=== PATIENT | male | born 1960 | race African-American/Black ===

== ENCOUNTER 2019-07-28 08:31 | Inpatient (IN) | payer OTHER ==
[~2019-07-28] VITALS: Ht 188 cm; Wt 113.4 kg
[2019-07-28] MEDS ORDERED: FUROSEMIDE 20MG/2ML VIAL IVP ONE (09:45)
[2019-07-28] MEDS ORDERED: HYDROCODONE/ACETAMINOPHEN 5/325MG TABLET PO ONE (09:45)
[2019-07-28 10:25] LABS: BASOPHILS % 0.4 % (0.0-2.0); EOSINOPHILS % 0.9 % (0.0-5.0); HEMATOCRIT. 41.8 % (42.0-52.0); HEMOGLOBIN. 13.4 g/dL (14.0-18.0); LYMPHOCYTES % 23.7 % (20.0-50.0); MEAN CORPUSCULAR HEMOGLOBIN 26.5 pg (28.0-32.0); MEAN CORPUSCULAR VOLUME 82.7 fL (80.0-94.0); MEAN PLATELET VOLUME 7.6 fl (7.4-10.4); MONOCYTES % 9.9 % (2.0-8.0); NEUTROPHILS % 65.1 % (40.0-76.0); PLATELET 161 x1000/uL (130-400); RED BLOOD CELL COUNT 5.06 mill/uL (4.7-6.1); RED CELL DISTRIBUTION WIDTH 19.9 % (11.6-14.6)
[2019-07-28 10:33] LABS: CHLORIDE 102 mEq/L (98-107)
[2019-07-28 10:37] LABS: ETHANOL BLOOD 102 mg/dL
[2019-07-28] MEDS ORDERED: POTASSIUM CHLORIDE 20MEQ TABLET SR PO ONE (11:30)
[2019-07-28] MEDS ORDERED: FUROSEMIDE 20MG/2ML VIAL IVP NR (11:45)
[2019-07-28] MEDS ORDERED: SODIUM CHLORIDE 0.9% 1,000 ML IV ONE (12:00)
[2019-07-28] MEDS ORDERED: DEXAMETHASONE 10 MG/ML VIAL IV ONE (13:15)
[2019-07-28 16:25] LABS: *BARBITURATES SCREEN URINE NEGATIVE (NEGATIVE); CANNABINOID URINE SCREEN NEGATIVE (NEGATIVE)
[2019-07-28 16:26] LABS: *AMPHETAMINES SCREEN URINE NEGATIVE (NEGATIVE); *BENZODIAZEPINES SCREEN URINE NEGATIVE (NEGATIVE)
[2019-07-28 16:27] LABS: OPIATES URINE SCREEN NEGATIVE (NEGATIVE)
[2019-07-28 16:28] LABS: *COCAINE SCREEN URINE NEGATIVE (NEGATIVE)
[2019-07-28 16:29] LABS: METHADONE URINE SCREEN NEGATIVE (NEGATIVE); PHENCYCLIDINE URINE SCREEN NEGATIVE (NEGATIVE)
[2019-07-28] MEDS ORDERED: ONDANSETRON HCL 4MG/2ML INJ IV ONE (18:15)
[2019-07-28] MEDS ORDERED: MORPHINE SULFATE 2 MG/ML CPJ (NOT FOR IM USE) IV ONE (18:15)
[2019-07-28 20:52] LABS: CLARITY URINE CLOUDY (CLEAR); COLOR URINE YELLOW (YELLOW); KETONES URINE NEGATIVE (NEGATIVE); LEUKOCYTE ESTERASE URINE 1+ (NEGATIVE); NITRITE URINE POSITIVE (NEGATIVE); OCCULT BLOOD URINE TRACE (NEGATIVE); PROTEIN URINE TRACE (NEGATIVE); SPECIFIC GRAVITY URINE 1.012 (1.005-1.030)
[2019-07-28] MEDS ORDERED: CEFTRIAXONE 1 G PREMIX 50 ML IV ONE (23:45)
[2019-07-29] MEDS ORDERED: ACETAMINOPHEN 325MG TABLET PO PRN (01:15)
[2019-07-29] MEDS ORDERED: CLONIDINE 0.1MG TABLET PO PRN (01:15)
[2019-07-29] MEDS ORDERED: ONDANSETRON HCL 4MG/2ML INJ IV PRN (01:15)
[2019-07-29] MEDS: MORPHINE SULFATE 2 MG/ML CPJ (NOT FOR IM USE) IV PRN ×2 (03:48→10:34)
[2019-07-29] MEDS ORDERED: LEVOFLOXACIN 500MG PREMIX 100 ML IV SCH (06:00)
[2019-07-29] MEDS: ENOXAPARIN 40MG/0.4ML SYR SUBCUT SCH (09:07)
[2019-07-29 10:10] VITALS: BP 119/102
[2019-07-29 10:25] VITALS: BP 119/102
[2019-07-29] MEDS: AMLODIPINE 10MG TABLET PO SCH (10:33)
[2019-07-29] MEDS ORDERED: IBUPROFEN 800MG TABLET PO PRN (11:15)
[2019-07-29] MEDS: FUROSEMIDE 40MG/4ML VIAL IVP SCH (11:45)
[2019-07-29 12:00] VITALS: BP 119/82
[2019-07-29] MEDS: HYDRALAZINE HCL 50MG TABLET PO SCH ×2 (13:19→22:00)
[2019-07-29 14:21] LABS: CHLORIDE 104 mEq/L (98-107)
[2019-07-29 16:00] VITALS: BP 112/76
[2019-07-29 20:00] VITALS: BP 102/65
[2019-07-30] VITALS: BP 122/78
[2019-07-30] MEDS: MORPHINE SULFATE 2 MG/ML CPJ (NOT FOR IM USE) IV PRN ×4 (00:36→20:52)
[2019-07-30 04:00] VITALS: BP 137/95
[2019-07-30] MEDS: HYDRALAZINE HCL 50MG TABLET PO SCH ×3 (05:41→21:22)
[2019-07-30 07:06] LABS: BASOPHILS % 0.6 % (0.0-2.0); EOSINOPHILS % 0.3 % (0.0-5.0); HEMATOCRIT. 42.1 % (42.0-52.0); LYMPHOCYTES % 21.4 % (20.0-50.0); MEAN CORPUSCULAR HEMOGLOBIN 25.8 pg (28.0-32.0); MEAN CORPUSCULAR VOLUME 83.5 fL (80.0-94.0); MEAN PLATELET VOLUME 8.1 fl (7.4-10.4); MONOCYTES % 8.9 % (2.0-8.0); NEUTROPHILS % 68.8 % (40.0-76.0); PLATELET 197 x1000/uL (130-400); RED BLOOD CELL COUNT 5.05 mill/uL (4.7-6.1); RED CELL DISTRIBUTION WIDTH 20.5 % (11.6-14.6)
[2019-07-30 07:28] LABS: CHLORIDE 104 mEq/L (98-107)
[2019-07-30 07:43] LABS: LDL CHOLESTEROL 80 mg/dL (5-100)
[2019-07-30 07:45] LABS: HDL CHOLESTEROL 43 mg/dL (40-59)
[2019-07-30 08:00] VITALS: BP 118/84
[2019-07-30] MEDS: AMLODIPINE 10MG TABLET PO SCH (08:46)
[2019-07-30] MEDS: FUROSEMIDE 40MG/4ML VIAL IVP SCH (08:46)
[2019-07-30] MEDS: ENOXAPARIN 40MG/0.4ML SYR SUBCUT SCH (08:46)
[2019-07-30] MEDS: LEVOFLOXACIN 500MG TABLET PO SCH (10:50)
[2019-07-30 12:00] VITALS: BP 119/78
[2019-07-30 16:00] VITALS: BP 120/85
[2019-07-30 20:00] VITALS: BP 124/80
[2019-07-31] VITALS: BP 142/90
[2019-07-31 04:00] VITALS: BP 138/88
[2019-07-31] MEDS: MORPHINE SULFATE 2 MG/ML CPJ (NOT FOR IM USE) IV PRN ×4 (04:03→23:27)
[2019-07-31] MEDS: HYDRALAZINE HCL 50MG TABLET PO SCH ×3 (06:30→21:39)
[2019-07-31] MEDS: ENOXAPARIN 40MG/0.4ML SYR SUBCUT SCH (08:29)
[2019-07-31] MEDS: FUROSEMIDE 40MG/4ML VIAL IVP SCH (08:29)
[2019-07-31] MEDS: AMLODIPINE 10MG TABLET PO SCH (08:30)
[2019-07-31] MEDS: LEVOFLOXACIN 500MG TABLET PO SCH (10:40)
[2019-07-31 20:00] VITALS: BP 141/92
[2019-08-01] VITALS: BP 117/73
[2019-08-01 04:00] VITALS: BP 120/87
[2019-08-01] MEDS: MORPHINE SULFATE 2 MG/ML CPJ (NOT FOR IM USE) IV PRN ×3 (04:29→17:06)
[2019-08-01] MEDS: HYDRALAZINE HCL 50MG TABLET PO SCH ×3 (06:14→21:06)
[2019-08-01 08:00] VITALS: BP 128/74
[2019-08-01] MEDS: ENOXAPARIN 40MG/0.4ML SYR SUBCUT SCH (08:08)
[2019-08-01] MEDS: AMLODIPINE 10MG TABLET PO SCH (08:08)
[2019-08-01] MEDS: FUROSEMIDE 40MG/4ML VIAL IVP SCH (08:08)
[2019-08-01] MEDS: LEVOFLOXACIN 500MG TABLET PO SCH (10:47)
[2019-08-01 12:00] VITALS: BP 127/64
[2019-08-01 16:00] VITALS: BP 105/64
[2019-08-01 20:00] VITALS: BP 113/73
[2019-08-01] MEDS: HYDROCODONE/ACETAMINOPHEN 5/325MG TABLET PO PRN (21:06)
[2019-08-02] VITALS: BP 115/76
[2019-08-02 04:00] VITALS: BP 166/105
[2019-08-02] MEDS: HYDROCODONE/ACETAMINOPHEN 5/325MG TABLET PO PRN ×3 (04:10→18:23)
[2019-08-02] MEDS: HYDRALAZINE HCL 50MG TABLET PO SCH ×3 (05:12→21:05)
[2019-08-02 08:00] VITALS: BP 109/73
[2019-08-02] MEDS: AMLODIPINE 10MG TABLET PO SCH (09:00)
[2019-08-02] MEDS: ENOXAPARIN 40MG/0.4ML SYR SUBCUT SCH (09:00)
[2019-08-02] MEDS: FUROSEMIDE 40MG/4ML VIAL IVP SCH (09:00)
[2019-08-02] MEDS ORDERED: LIDOCAINE HCL 1% 20ML VIAL (Pyxis) INJ ONE (09:10)
[2019-08-02] MEDS ORDERED: SODIUM BICARBONATE 4% (2.4MEQ) 5ML VIAL IV ONE (09:10)
[2019-08-02] MEDS: LEVOFLOXACIN 500MG TABLET PO SCH (11:48)
[2019-08-02 12:00] VITALS: BP 124/80
[2019-08-02 13:25] LABS: INR 1.1; PROTHROMBIN TIME 11.1 sec (9.6-11.0)
[2019-08-02 16:00] VITALS: BP 128/85
[2019-08-02 20:00] VITALS: BP 118/78
[2019-08-02] MEDS: MORPHINE SULFATE 2 MG/ML CPJ (NOT FOR IM USE) IV PRN (22:38)
[2019-08-03] VITALS: BP 120/74
[2019-08-03] MEDS ORDERED: HYDROCODONE/ACETAMINOPHEN 5/325MG TABLET PO PRN (03:45)
[2019-08-03] MEDS ORDERED: MORPHINE SULFATE 2 MG/ML CPJ (NOT FOR IM USE) IV PRN (03:45)
[2019-08-03 04:00] VITALS: BP 118/55
[2019-08-03 08:00] VITALS: BP 132/92
[2019-08-03] MEDS: FUROSEMIDE 40MG/4ML VIAL IVP SCH (09:01)
[2019-08-03] MEDS: AMLODIPINE 10MG TABLET PO SCH (09:01)
[2019-08-03] MEDS: ENOXAPARIN 40MG/0.4ML SYR SUBCUT SCH (09:01)
[2019-08-03] MEDS: HYDROCODONE/ACETAMINOPHEN 10/325MG TABLET PO PRN ×2 (09:41→16:34)
[2019-08-03 12:00] VITALS: BP 132/90
[2019-08-03] MEDS: HYDRALAZINE HCL 50MG TABLET PO SCH ×2 (14:00→22:00)
[2019-08-03 16:00] VITALS: BP 124/70
[2019-08-03] MEDS: KETOROLAC 15MG/ML VIAL IV PRN (22:11)
[2019-08-04] VITALS: BP 115/75
[2019-08-04 04:00] VITALS: BP 119/60
[2019-08-04] MEDS: HYDRALAZINE HCL 50MG TABLET PO SCH ×3 (05:35→22:00)
[2019-08-04] MEDS: KETOROLAC 15MG/ML VIAL IV PRN ×3 (06:37→23:50)
[2019-08-04 08:00] VITALS: BP 120/64
[2019-08-04] MEDS: AMLODIPINE 10MG TABLET PO SCH (08:04)
[2019-08-04] MEDS: ENOXAPARIN 40MG/0.4ML SYR SUBCUT SCH (08:04)
[2019-08-04 12:00] VITALS: BP 124/72
[2019-08-04] MEDS ORDERED: MAGNESIUM/ALUMINUM HYDROXIDE/SIMETHICONE 30ML UDC PO PRN (12:00)
[2019-08-04 16:00] VITALS: BP 105/69
[2019-08-04 20:00] VITALS: BP 119/77
[2019-08-05] VITALS: BP 131/94
[2019-08-05 04:00] VITALS: BP 133/61
[2019-08-05] MEDS: HYDRALAZINE HCL 50MG TABLET PO SCH ×3 (06:00→22:00)
[2019-08-05] MEDS: KETOROLAC 15MG/ML VIAL IV PRN ×3 (06:14→19:38)
[2019-08-05 08:00] VITALS: BP 147/102
[2019-08-05] MEDS: ENOXAPARIN 40MG/0.4ML SYR SUBCUT SCH (08:30)
[2019-08-05] MEDS: AMLODIPINE 10MG TABLET PO SCH (08:30)
[2019-08-05 12:00] VITALS: BP 128/83
[2019-08-05 16:00] VITALS: BP 113/80
[2019-08-05 20:00] VITALS: BP 127/76
[2019-08-06] VITALS: BP 130/76
[2019-08-06 04:00] VITALS: BP 103/73
[2019-08-06] MEDS: HYDRALAZINE HCL 50MG TABLET PO SCH ×3 (05:36→21:43)
[2019-08-06 08:00] VITALS: BP 133/90
[2019-08-06] MEDS: ENOXAPARIN 40MG/0.4ML SYR SUBCUT SCH (08:18)
[2019-08-06] MEDS: KETOROLAC 15MG/ML VIAL IV PRN ×3 (08:19→22:12)
[2019-08-06] MEDS: AMLODIPINE 10MG TABLET PO SCH (08:24)
[2019-08-06 12:00] VITALS: BP 144/96
[2019-08-06 16:00] VITALS: BP 130/89
[2019-08-06 20:00] VITALS: BP 127/84
[2019-08-06] MEDS: ENOXAPARIN 30MG/0.3ML SYR SUBCUT SCH (21:34)
[2019-08-07] VITALS: BP 135/89
[2019-08-07] MEDS: KETOROLAC 15MG/ML VIAL IV PRN ×2 (04:15→11:32)
[2019-08-07] MEDS: HYDRALAZINE HCL 50MG TABLET PO SCH (05:57)
[2019-08-07 07:01] LABS: BASOPHILS % 0.4 % (0.0-2.0); EOSINOPHILS % 3.2 % (0.0-5.0); HEMATOCRIT. 40.9 % (42.0-52.0); LYMPHOCYTES % 25.4 % (20.0-50.0); MEAN CORPUSCULAR VOLUME 82.1 fL (80.0-94.0); MEAN PLATELET VOLUME 7.9 fl (7.4-10.4); MONOCYTES % 8.6 % (2.0-8.0); NEUTROPHILS % 62.4 % (40.0-76.0); PLATELET 381 x1000/uL (130-400); RED BLOOD CELL COUNT 4.98 mill/uL (4.7-6.1); RED CELL DISTRIBUTION WIDTH 18.1 % (11.6-14.6)
[2019-08-07 07:07] LABS: CHLORIDE 105 mEq/L (98-107)
[2019-08-07 08:00] VITALS: BP 132/98
[2019-08-07] MEDS: AMLODIPINE 10MG TABLET PO SCH (09:32)
[2019-08-07] MEDS: ENOXAPARIN 30MG/0.3ML SYR SUBCUT SCH (09:33)
[2019-08-07 12:00] VITALS: BP 157/89
[2019-08-07 12:23] VITALS: BP 157/89
== END 2019-08-07 13:17 | DRG 552 ==
LOC: ER 08:31 → ENRESERV 07-29 08:03 → 6EST 07-29 09:43
PROVIDERS: ADMIT Hospitalist; ATTEND Hospitalist
PROC: 0S9C3ZX Drainage of Right Knee Joint, Percutaneous Approach, Diagnostic (ICD-10-PCS; principal; 2019-08-02)
DX: M48.061 Spinal stenosis, lumbar region without neurogenic claudication (principal); N30.00 Acute cystitis without hematuria; E87.6 Hypokalemia; I10 Essential (primary) hypertension; R09.02 Hypoxemia; M17.11 Unilateral primary osteoarthritis, right knee; M25.461 Effusion, right knee
CPT/HCPCS: 20611; 36415; 71045; 72100; 72131; 72148; 73560; 80048; 80053; 80061; 80305; 80320; 81003; 83880; 84484; 84550; 85025; 85651; 86140; 89060; 93005; 93970; 97110; 97116; 97162; 97535; 99285; J0696; J1100; J1650; J1885; J1940; J1956; J2270; J2405; J3490; J7030; G0480